=== PATIENT | female | born 1975 | race Caucasian/White ===

== ENCOUNTER → 2021-01-29 12:31 | Outpatient (CLI) | payer OTHER, SELFPAY ==
--- NOTE | ~2021-01-29 | MR_ITS ---
EXAMINATION: MR brain/brain stem wo/w con DATE: 01/29/2021 13:22 INDICATION: Migraine headache without aura. TECHNIQUE: Magnetic resonance imaging (MRI) of the brain and brainstem was performed without and with 17 mL MultiHance intravenous contrast. Sequences included sagittal and axial T1-weighted FSE, axial diffusion-weighted FS EPI, axial T2*-weighted GRE, axial T2-weighted FLAIR Propeller, and axial T2-we ighted Propeller. Postcontrast sequences included axial and coronal T1-weighted FSE. Apparent diffusi on coefficient (ADC) maps were created. COMPARISON: None. FINDINGS: There is an empty sella. There is no intracranial hemorrhage, acute infarction, or abnorm al intracranial mass lesion. The ventricles are normal in size. The orbits are normal. The paranasal sinuses are clear. The mastoid air cells are normal. IMPRESSION: 1. No specific etiology for the patient's symptoms. Reviewed, dictated and finalized at location A.
[2021-01-29 13:00] LABS: Estimated Glomerular Filt Rate > 60
== END ==
PROVIDERS: PCP Family Medicine; Visit Provider Family Medicine
DX: G43.019 Migraine without aura, intractable, without status migrainosus (principal)
CPT/HCPCS: 70553; A9577

== ENCOUNTER 2022-09-20 00:06 | Day surgery (SDC) | payer BC, SELFPAY ==
[2022-09-03 15:17] VITALS: BMI 35.2
[2022-09-20 13:08] VITALS: BP 118/74; PULSE 66; RESP 16; TEMP 36.2; O2SAT 100
--- NOTE | 2022-09-20 13:14 | WPDANESEPPF ---
Anes - Initial Pre Proc Eval Procedure: Operation Date: 09/20/22 14:30 Proposed Procedures p Screening Colonoscopy - Jens Pineda MD Date/Time: 09/20/22 13:14 Surgeon: Jens Pineda MD Pre Op Diagnosis: neoplasm screening Patient Data Age: 47 Gender: F Height: 1.57 m Weight: 87.9 kg Last Vital Signs Temp 36.2 C L 09/20/22 13:08 Pulse 66 09/20/22 13:08 Resp 16 09/20/22 13:08 BP 118/74 09/20/22 13:08 Pulse Ox 100 09/20/22 13:08 O2 Del Method Room Air 09/20/22 13:08 Allergies Allergy/AdvReac Type Severity Reaction Status Date / Time iodine Allergy Mild Unknown Verified 09/20/22 13:07 meloxicam AdvReac Unknown Unknown Verified 09/20/22 13:07 Home Medications Medication Instructions Recorded Confirmed Type pantoprazole 40 mg tablet,delayed 40 mg PO QAM 08/19/22 09/03/22 History release topiramate 100 mg tablet 100 mg PO DAILY 08/19/22 09/03/22 History multivitamin with minerals-folic 1 tablet PO DAILY 09/03/22 09/03/22 History acid 0.4 mg tablet Patient hx anesthesia problems: none Family hx anesthesia problems: none Results Review: All pre-operative results and documents have been reviewed as part of the pre-operative evaluation. [facility] Past Medical History Medical History GERD (gastroesophageal reflux disease) Obesity Social History Social History Smoking status: Never smoker Alcohol intake: current Drinks per week: 1 Substance use type: does not use Living arrangements: with family Spiritual care concerns: No Anes - Eval Final PreProcedure Day of Procedure 09/20/22 13:14 Patient weight: obese Heart: regular rate and rhythm Lungs: clear to auscultation Airway: Mallampati scale class II Neurological: alert and oriented Last oral intake: >/= 8 hours ASA classification: II Emergent: no Anesthetic plan: proceed Anesthesia type and monitoring: general GIVS and standard monitoring Results Review: All pre-operative results and documents have been reviewed as part of the pre-operative evaluation. Informed Consent: The patient's anesthetic plan and its attendant risks and benefits were discussed with the patient/family/POA. Questions were solicited and answers provided to the satisfaction of the patient/family/POA.
[2022-09-20] MEDS: LACTATED RINGERS 1,000 ML 150 ML IV CONT (13:18)
--- NOTE | 2022-09-20 13:18 | PM.HPGS ---
History of Present Illness History of Present Illness Consent: Risks, benefits, and alternatives have been discussed and questions answered. Patient agrees to proceed with procedure. Chief complaint: neoplasm screening Narrative: Mary Sargent is a 47 year old female here for screening colonoscopy, had one several years ago because IBS Review of Systems Constitutional: Constitutional: Denies headache(s) and Denies weakness Eyes: Eyes: Denies blurry vision ENT: Reports Normal hearing present, Denies headache(s) and Denies neck pain Cardiovascular: Cardiovascular: Denies chest pain and Denies dyspnea Respiratory: Respiratory: Denies dyspnea Gastrointestinal: Gastrointestinal: Reports no additional gastrointestinal complaints Genitourinary: Genitourinary: Denies dysuria Musculoskeletal: Musculoskeletal: Denies neck pain Integumentary/Breasts: Skin/Breast: Denies dry skin Neurologic: Reports Normal hearing present, Denies headache(s) and Denies weakness Psychiatric: Psychiatric: Denies anxiety Endocrine: Endocrine: Denies change in body appearance Hematologic/Lymphatic: Hematologic/Lymphatic: Denies easy bleeding Allergic/Immunologic: Allergic/Immunologic: Denies urticaria PMFSH Past Medical History Medical History (Updated 09/20/22 @ 13:18 by Jens Pineda MD) Colon cancer screening GERD (gastroesophageal reflux disease) Obesity Social History Social History Smoking status: Never smoker Alcohol intake: current Drinks per week: 1 Substance use type: does not use Living arrangements: with family Spiritual care concerns: No Meds Home Medications and Allergies Home Medications Medication Instructions Recorded Confirmed Type pantoprazole 40 mg tablet,delayed 40 mg PO QAM 08/19/22 09/03/22 History release topiramate 100 mg tablet 100 mg PO DAILY 08/19/22 09/03/22 History multivitamin with minerals-folic 1 tablet PO DAILY 09/03/22 09/03/22 History acid 0.4 mg tablet Allergies Allergy/AdvReac Type Severity Reaction Status Date / Time iodine Allergy Mild Unknown Verified 09/20/22 13:07 meloxicam AdvReac Unknown Unknown Verified 09/20/22 13:07 Vital Signs Vital Signs - 24 hr 09/20/22 13:08 Temperature 97.1 F L Pulse Rate 66 Respiratory Rate 16 Blood Pressure 118/74 Pulse Oximetry 100 Oxygen Delivery Room Air Exam Const: General: comfortable and no acute distress HENMT: Face/Nose/Sinus: Normal nares present Eyes: General: appearance normal, both eyes and all related structures Neck: Neck: no JVD Resp: Auscultation: clear to auscultation bilaterally Cardio: Rate: regular rate Rhythm: regular rhythm GI: Inspection: non-distended GI Palp: Yes Soft to palpation Skin: General skin exam: normal color Neuro: General: gait normal Speech: normal speech Extrem: General: normal to inspection Psych: Mental Status: mental status grossly normal Assessment and Plan Assessment and plan (1) Colon cancer screening: Code(s): Z12.11 - Encounter for screening for malignant neoplasm of colon Status: Acute Assessment and Plan: colonoscopy
[2022-09-20 13:39] VITALS: BP 108/68; PULSE 60; RESP 24; O2SAT 100
[2022-09-20 13:49] VITALS: BP 113/59; PULSE 61; RESP 20; O2SAT 100
[2022-09-20 13:59] VITALS: BP 119/70; PULSE 58; RESP 14; O2SAT 100
== END 2022-09-20 14:12 | disposition home or self-care (01) ==
PROVIDERS: Visit Provider Internal Medicine Gastroenterology
PROC: 0DJD8ZZ Inspection of Lower Intestinal Tract, Via Natural or Artificial Opening Endoscopic (ICD-10-PCS; CPT 45378; principal; 2022-09-20 14:30)
DX: Z12.11 Encounter for screening for malignant neoplasm of colon (principal); K64.8 Other hemorrhoids; K21.9 Gastro-esophageal reflux disease without esophagitis; E66.9 Obesity, unspecified; Z68.35 Body mass index [BMI] 35.0-35.9, adult
CPT/HCPCS: 45378; J2704; J7120

== ENCOUNTER 2022-09-27 07:01 | Outpatient (CLI) | payer BC, SELFPAY ==
--- NOTE | ~2022-09-27 | MR_ITS ---
EXAMINATION: MR MRCP wo/w con/w 3D wo ind DATE: 09/27/2022 08:25 INDICATION: CDKN2A gene mutation TECHNIQUE: Magnetic resonance imaging (MRI) of the abdomen was performed without and with intravenous contrast. Sequences included coronal T2-weighted SS-FSE ARC, coronal T2-weighted FS SS-FSE, coronal T2-weighted 2D FS FIESTA, Water:Coronal LAVA-Flex, sagittal T2-weighted SS-FSE ARC, axial SSFSE ARC, axial 3D DualEcho, axial DWI B=600, axial T1-weighted LAVA, FAT:Coronal LAVA-Flex, and coronal in and opposed phase LAVA-Flex. Thick-slab T2-weighted FRFSE-XL images were obtained for magnetic resonance cholangiopancreatography (MRCP). Maximum intensity projection 3-D reconstructions of the volumetric data were created by the technologist. Postcontrast sequences included a time course of axial T1-weig hted LAVA, FAT:Coronal LAVA-Flex. COMPARISON: None. CONTRAST: Multihance, 17 cc FINDINGS: ABDOMEN MRI: The liver, spleen, gallbladder, and adrenal glands are normal. The kidneys are unremarka ble. The pancreas is normal. There are no pathologically enlarged abdominal lymph nodes. No abnormal enhancement is present after contrast administration. There are no dilated loops of bowel. ABDOMEN MRCP: There is no intrahepatic or extrahepatic biliary dilatation. The pancreatic duct is nor mal in course and caliber. IMPRESSION: 1. Unremarkable abdominal MRI. Reviewed, dictated and finalized at location A. LINE OPERATOR
== END 2022-09-27 07:02 | disposition home or self-care (01) ==
LOC: ANHIMG 07:06
PROVIDERS: Visit Provider Nurse Practitioner
DX: Z12.89 Encounter for screening for malignant neoplasm of other sites (principal); Z15.09 Genetic susceptibility to other malignant neoplasm; Z15.01 Genetic susceptibility to malignant neoplasm of breast
CPT/HCPCS: 74183; 76376; A9577

== ENCOUNTER 2023-12-02 07:21 | Outpatient (CLI) | payer BC, SELFPAY ==
--- NOTE | ~2023-12-02 | MR_ITS ---
EXAMINATION: MR MRCP wo/w con/w 3D wo ind DATE: 12/02/2023 08:37 INDICATION: CDKN2A gene mutation TECHNIQUE: Magnetic resonance imaging (MRI) of the abdomen was performed without and with intravenous contrast. Sequences included coronal T2-weighted SS-FSE ARC, coronal T2-weighted FS SS-FSE, coronal T2-weighted 2D FS FIESTA, Water:Coronal LAVA-Flex, sagittal T2-weighted SS-FSE ARC, axial SSFSE ARC, axial 3D DualEcho, axial DWI B=600, axial T1-weighted LAVA, FAT:Coronal LAVA-Flex, and coronal in and opposed phase LAVA-Flex. Thick-slab T2-weighted FRFSE-XL images were obtained for magnetic resonance cholangiopancreatography (MRCP). Maximum intensity projection 3-D reconstructions of the volumetric data were created by the technologist. Postcontrast sequences included a time course of axial T1-weig hted LAVA, FAT:Coronal LAVA-Flex, coronal in and opposed phase LAVA-Flex, and Water:Coronal LAVA-Flex . COMPARISON: 10/07/2022 CONTRAST: Multihance, 17 cc FINDINGS: ABDOMEN MRI: The liver, spleen, pancreas, gallbladder, and adrenal glands are normal. The kidneys are unremarkable. No pathologically enlarged abdominal or pelvic lymph nodes are identified. There are n o dilated loops of bowel. No abnormal enhancement is present after contrast administration. ABDOMEN MRCP: No intrahepatic or extrahepatic biliary dilatation. There are no stones or stricture of the common bile duct. The pancreatic duct is normal in course and caliber. IMPRESSION: 1. Unremarkable abdominal MRI. Reviewed, dictated and finalized at location B. [employer]
== END 2023-12-02 07:22 | disposition home or self-care (01) ==
PROVIDERS: Visit Provider Nurse Practitioner
DX: Z15.09 Genetic susceptibility to other malignant neoplasm (principal); Z15.01 Genetic susceptibility to malignant neoplasm of breast
CPT/HCPCS: 74183; 76376; A9577